=== PATIENT | female | born 1955 | race Caucasian/White ===

== ENCOUNTER 2019-11-14 23:00 | Emergency (ER) | payer OTHER ==
[~2019-11-14] VITALS: Ht 165.1 cm; Wt 96.6 kg
[2019-11-14] MEDS ORDERED: BENICAR20 MG PO (23:40)
[2019-11-14] MEDS ORDERED: CYMBALTA20 MG PO (23:41)
[2019-11-14] MEDS ORDERED: ARIMIDEX1 MG PO (23:41)
[2019-11-14] MEDS ORDERED: GLIPIZIDE 10 MG10 MG PO (23:42)
[2019-11-15 00:37] VITALS: BP 124/68
[2019-11-15] MEDS ORDERED: PROAIR RESPICL90 MCG INH (00:40)
[2019-11-15] MEDS ORDERED: PREDNISONE 20 M20 M1 PO (00:40)
== END 2019-11-15 00:49 | disposition home or self-care (01) ==
LOC: ER 23:00
DX: J06.9 Acute upper respiratory infection, unspecified (principal); Z91.040 Latex allergy status; Z91.018 Allergy to other foods; Z88.0 Allergy status to penicillin

== ENCOUNTER 2019-11-19 03:02 | Emergency (ER) | payer OTHER ==
[~2019-11-19] VITALS: Ht 165.1 cm; Wt 96.6 kg
--- NOTE | ~2019-11-19 | EKG ---
[facility] [address] [place] [address] ELECTROCARDIOGRAM REPORT Name: CLAUDIA ANDINO Room #: REG [facility]#: [id number] Admission: 11/19/19 Attend Phys: Discharge: Date of : 59 Report #: [id number] THIS REPORT FOR: cc: [facility] - Clinic physician unknown [facility] - Clinic physician unknown Perla Duncan MD ~ THIS REPORT FOR: //name// [facility] ED Test Date: 2019-11-19 Test Time: 04:30:14 Pat Name: CLAUDIA ANDINO Department: Room: Gender: F Parachute Marker: jaret duval rn : 1955 Requested By: Lucía Hester Order Number: [id number] MD: Measurements Intervals [place] Rate: 91 P: 10 TN: 127 QRS: 8 QRSD: 78 T: 54 QT: 341 QTc: 420 Interpretive Statements Sinus rhythm Probable left atrial enlargement Low voltage, precordial leads Probable LVH with secondary repol abnrm Compared to ECG 07/30/2008 01:01:39 Low QRS voltage now present Atrial premature complex(es) no longer present Myocardial infarct finding no longer present [email or web address] By: 0430 0430 Epiphany Epiph[place], [place] /EPI
[~2019-11-19 03:02] MED LIST: ARIMIDEX1 MG PO; BENICAR20 MG PO; CYMBALTA20 MG PO; GLIPIZIDE 10 MG10 MG PO; PREDNISONE 20 M20 M1 PO; PROAIR RESPICL90 MCG INH
[2019-11-19] MEDS ORDERED: ALBUTEROL2.5 MG/3 M INH (05:12)
[2019-11-19] MEDS ORDERED: GUAIFEN-CODEINE10 ML PO (05:12)
[2019-11-19 05:25] VITALS: BP 103/67
== END 2019-11-19 05:25 | disposition home or self-care (01) ==
LOC: ER 03:02
DX: J06.9 Acute upper respiratory infection, unspecified (principal); Z91.040 Latex allergy status; Z91.018 Allergy to other foods; Z88.0 Allergy status to penicillin

== ENCOUNTER → 2020-02-24 | Outpatient (CLI) | payer OTHER ==
[~2020-02-24] MED LIST changes: +ALBUTEROL2.5 MG/3 M INH; +GUAIFEN-CODEINE10 ML PO
== END ==
LOC: RAD 10:25
DX: R06.02 Shortness of breath (principal)

== ENCOUNTER → 2020-02-28 | Outpatient (CLI) | payer OTHER | LOC: CAT 13:09 | DX: N28.1 Cyst of kidney, acquired (principal) ==

== ENCOUNTER → 2020-05-09 | Outpatient (CLI) | payer OTHER | LOC: CAT 09:52 | PROVIDERS: ATTEND Pediatrics | DX: N28.1 Cyst of kidney, acquired (principal); A15 Respiratory tuberculosis ==